=== PATIENT | female | born 1940 | race Two or more races ===

== ENCOUNTER 2018-09-26 13:14 | Inpatient (IN) | payer OTHER ==
[~2018-09-26] VITALS: Ht 157.5 cm; Wt 71.7 kg
== END 2018-10-25 16:52 | disposition home or self-care (01) | DRG 330 ==
LOC: SURG 10-18 06:27 → O/R 10-18 06:27 → SURH 10-18 07:00 → SURG 10-18 15:20
PROVIDERS: ADMIT Colon & Rectal Surgery
PROC: 07TC4ZZ Resection of Pelvis Lymphatic, Percutaneous Endoscopic Approach (ICD-10-PCS; 2018-10-18)
PROC: 0DBU4ZZ Excision of Omentum, Percutaneous Endoscopic Approach (ICD-10-PCS; 2018-10-18)
PROC: 4A033R1 Measurement of Arterial Saturation, Peripheral, Percutaneous Approach (ICD-10-PCS; 2018-10-18)
PROC: 0DTF4ZZ Resection of Right Large Intestine, Percutaneous Endoscopic Approach (ICD-10-PCS; principal; 2018-10-18 07:00)
DX: D12.0 Benign neoplasm of cecum (principal); K91.89 Other postprocedural complications and disorders of digestive system; K56.7 Ileus, unspecified; I13.10 Hypertensive heart and chronic kidney disease without heart failure, with stage 1 through stage 4 chronic kidney disease, or unspecified chronic kidney disease; N18.2 Chronic kidney disease, stage 2 (mild)

== ENCOUNTER 2019-12-08 07:18 | Day surgery (SDC) | payer OTHER | END 2019-12-08 10:45 | disposition home or self-care (01) | LOC: AMB-ENDOS 07:18 | DX: K62.89 Other specified diseases of anus and rectum (principal); K64.1 Second degree hemorrhoids ==